=== PATIENT | male | born 1950 | race Caucasian/White ===

== ENCOUNTER 2016-11-10 07:10 | Day surgery (SDC) | payer OTHER, MEDICARE ==
[2016-11-06 10:59] VITALS: BMI 23.6
[2016-11-10] MEDS ORDERED: PROPOFOL 20 ML ONE ×2 (07:17)
[2016-11-10 07:29] VITALS: TEMP 97.6
[2016-11-10 09:40] VITALS: BP 113/63; PULSE 44
--- NOTE | 2016-11-13 16:53 | PATH ---
Surgical Pathology Report Patient Name: JHONNY DEXTER [facility]. Rec. #: [id number] /Age/Gender: 1950 (Age: 66) / M Account: [id number] Location: [facility]-ENDOSCOPY Taken: 11/10/2016 Received: 11/10/2016 Reported: 11/13/2016 Physicians: Gurwinder Dewey M.D. Specimen(s) Received A: BX DUODENUM B: BX ANTRUM C: BX RECTOSIGMOID D: BX RECTUM Clinical History GERD, rule out colon cancer Abdominal pain, gastritis, colonic polyps Final Diagnosis A. DUODENUM, BIOPSY: DUODENAL MUCOSA WITH NO PATHOLOGIC FINDINGS. B. ANTRUM, BIOPSY: MILD CHRONIC GASTRITIS. IMMUNOSTAIN IS NEGATIVE FOR H. PYLORI ORGANISMS. C. RECTOSIGMOID, BIOPSY: TUBULAR ADENOMA. D. RECTUM, BIOPSY: HYPERPLASTIC POLYP. Electronically Signed Vira Harris M.D. Gross Description A. Received in formalin, labeled "duodenum" are 3 fischer, irregular portions of soft tissue ranging from 0.1-0.3 cm. in greatest dimension. The specimens are submitted in toto in one cassette. B. Received in formalin, labeled "antrum" are 2 fischer, irregular portions of soft tissue measuring 0.3 and 0.7 cm. in greatest dimension. The specimens are submitted in toto in one cassette. C. Received in formalin, labeled "rectosigmoid" is a fischer, irregular portion of soft tissue measuring 0.4 cm. in greatest dimension. The specimen is submitted in toto in one cassette. D. Received in formalin, labeled "rectum" is a fischer, irregular portion of soft tissue measuring 0.3 cm. in greatest dimension. The specimen is submitted in toto in one cassette. 11/12/2016 saudi11/12/2016
== END 2016-11-10 09:40 | disposition home or self-care (01) ==
LOC: FASU-ENDO 07:10
PROVIDERS: ATTEND Internal Medicine Gastroenterology
PROC: 0DB68ZX Excision of Stomach, Via Natural or Artificial Opening Endoscopic, Diagnostic (ICD-10-PCS; 2016-11-10)
PROC: 0D748ZZ Dilation of Esophagogastric Junction, Via Natural or Artificial Opening Endoscopic (ICD-10-PCS; 2016-11-10)
PROC: 0DBN8ZX Excision of Sigmoid Colon, Via Natural or Artificial Opening Endoscopic, Diagnostic (ICD-10-PCS; principal; 2016-11-10 08:20)
PROC: 0DBP8ZX Excision of Rectum, Via Natural or Artificial Opening Endoscopic, Diagnostic (ICD-10-PCS; 2016-11-10 08:20)
PROC: 0DB98ZX Excision of Duodenum, Via Natural or Artificial Opening Endoscopic, Diagnostic (ICD-10-PCS; 2016-11-10 08:20)
DX: Z12.11 Encounter for screening for malignant neoplasm of colon (principal); D12.7 Benign neoplasm of rectosigmoid junction; K62.1 Rectal polyp; K29.50 Unspecified chronic gastritis without bleeding
CPT/HCPCS: 88305-TC; 88342-TC